=== PATIENT | male | born 1970 | race African-American/Black ===

== ENCOUNTER 2018-08-14 14:41 | Emergency (ER) | payer OTHER ==
[2018-08-14] MEDS ORDERED: Morphine 4 MG/ML VIAL ONE (15:20)
[2018-08-14 15:35] LABS: #Basophils 0.1 thou/uL (0.0-0.2); #Lymphocytes 2.2 thou/uL (1.20-3.40); #Monocytes 0.6 thou/uL (0.11-0.59); #Neutrophils 4.2 thou/uL (1.40-6.50); %Basophils 1.7 % (0.0-1.0); %Eosinophils 0.3 % (0.0-10.0); %Lymphocytes 30.7 % (21.0-51.0); %Monocytes 8.4 % (0.0-10.0); %Neutrophils 58.9 % (42.0-75.0); Hemoglobin 13.8 g/dL (14.0-18.0); Mean Corpuscular Hemoglobin 28.3 pg (27.0-31.0); Mean Corpuscular Volume 88.5 fL (78.0-98.0); Mean Platelet Volume 8.2 fL (7.4-10.4); Platelet Count 225 thou/uL (130-400); RBC Distribution Width 13.8 % (11.5-14.5); Red Blood Cell (RBC) Count 4.87 mill/uL (4.70-6.10); White Blood Cell (WBC) Count 7.1 thou/uL (4.8-10.8)
[2018-08-14 15:52] LABS: ALT (SGPT) 30 U/L (8-55); AST (SGOT) 38 U/L (5-34); Albumin 4.4 g/dL (3.5-5.0); Alkaline Phosphatase 74 U/L (40-150); Anion Gap 17 mmol/L (10-20); BUN (Urea Nitrogen) 13 mg/dL (8.9-20.6); Bilirubin, Total 0.6 mg/dL (0.2-1.2); Calc. Creatinine Clearance 0 mL/min (70-130); Calcium 9.6 mg/dL (7.8-10.44); Carbon Dioxide 21 mmol/L (22-29); Chloride 101 mmol/L (98-107); Estimated GFR-MDRD 77; Globulin 3.8 g/dL (2.4-3.5); Glucose 294 mg/dL (70-105); Potassium 4.2 mmol/L (3.5-5.1); Protein, Total 8.2 g/dL (6.0-8.3); Sodium 135 mmol/L (136-145)
--- NOTE | 2018-08-14 15:52 | RAD ---
CHEST TWO VIEWS: History: Right sided chest pain. Comparison: None. FINDINGS: Normal cardiac silhouette. The pulmonary vessels and hilum are normal. Costophrenic angles are clear. No masses or consolidation. No pneumothorax or osseous abnormality. IMPRESSION: No acute cardiopulmonary process. POS: H
== END 2018-08-14 16:35 | disposition home or self-care (01) ==
LOC: SCSER 14:41
DX: R07.89 Other chest pain (principal); I10 Essential (primary) hypertension; E11.65 Type 2 diabetes mellitus with hyperglycemia; E78.5 Hyperlipidemia, unspecified; F17.210 Nicotine dependence, cigarettes, uncomplicated; F41.9 Anxiety disorder, unspecified; F31.9 Bipolar disorder, unspecified
CPT/HCPCS: 71046; 80053; 85025; 96361; 96374; J2270

== ENCOUNTER 2019-06-09 09:03 | Emergency (ER) | payer OTHER | END 2019-06-09 10:19 | disposition left against medical advice (07) | LOC: SCSER 09:03 | DX: Z53.21 Procedure and treatment not carried out due to patient leaving prior to being seen by health care provider (principal) ==

== ENCOUNTER 2020-03-16 10:59 | Emergency (ER) | payer OTHER ==
[2020-03-16] MEDS ORDERED: Morphine 10 MG/ML VIAL ONE (12:30)
[2020-03-16] MEDS ORDERED: Diazepam 5 MG TAB ONE (12:30)
== END 2020-03-16 12:50 | disposition home or self-care (01) ==
LOC: ERS 10:59
DX: G89.29 Other chronic pain (principal); M54.5 Low back pain; I10 Essential (primary) hypertension; E11.40 Type 2 diabetes mellitus with diabetic neuropathy, unspecified; E78.5 Hyperlipidemia, unspecified; E78.00 Pure hypercholesterolemia, unspecified; F31.9 Bipolar disorder, unspecified; F41.9 Anxiety disorder, unspecified; F17.210 Nicotine dependence, cigarettes, uncomplicated; Z79.84 Long term (current) use of oral hypoglycemic drugs; Z79.899 Other long term (current) drug therapy
CPT/HCPCS: 96372; 99283; J2270

== ENCOUNTER 2020-03-18 09:16 | Outpatient (CLI) | payer OTHER ==
--- NOTE | 2020-03-18 11:00 | MRI ---
LUMBAR SPINE MRI WITH AND WITHOUT CONTRAST: COMPARISON: 10/11/2014. CORRELATION: Lumbar spine MRI without contrast 01/09/2018. FINDINGS: Bilateral transpedicular screws at L2, L3, L4, L5 and S1. There is associated metallic susceptibility artifact. Overall appropriate T1 marrow signal intensity of the lumbar vertebrae. No evidence of fracture. Straightening of lumbar lordosis is presumed to be due to fusion. No significant STIR hyper intensity to suggest vertebral body edema or ligamentous injury. Redemonstration of a T2 hyperintense focus at the L5-S1 level, superficial to the laminectomy defect. T2 hyperintensity measu res 1.7 x 0.9 x 1.9 cm. Previously, this T2 hyperintense focus measured 2.4 x 1.3 x 2.3 cm. Minimal associated peripheral enhancement. Appropriate signal intensity of the visualized solid organs and paraspinal muscles. Conus medullaris terminates near the T12-L1 level. T12-L1: Adequate disc hydration. No posterior disc abnormality. No significant central canal stenosis or significant neural foraminal narrowing. L1-L2: Abnormal T2 and STIR hyperintensity in the disc. Definite enhancement is not appreciated on th e postcontrast images. Abnormal signal intensity appears to be due to the position of the left-sided screw which enters the disc space. There may be at least moderate central canal stenosis s econdary to disc material and posterior element hypertrophy. Mild bilateral neural foraminal narrowing. L2-L3: Disc desiccation without significant loss of disc space height. No posterior disc abnormality. No significant central canal stenosis or significant neural foraminal narrowing. L3-L4: Mild loss of disc space height. Posterior laminectomy defect. No significant posterior disc ab normality. No significant central canal stenosis. Mild bilateral foraminal narrowing predominantly due to disc material. L4-L5: Desiccation with severe loss of disc space height. Broad-based disc bulge without any signific ant mass effect upon the thecal sac. There is no significant central canal stenosis. Bilaterally, neural foramina are patent. There is minimal enhancement along the posterior left margin of the disc at the level subarticular zone. This area of enhancement does abut the traversing left L4 nerve root without significant obscuration. L5-S1: Adequate disc hydration. No posterior disc abnormality. No significant central canal stenosis. Moderate bilateral facet hypertrophy. There is abnormal signal intensity involving both neural foramina which appears to be due to disc material and posterior element hypertrophy. Moderate to sheng re bilateral neural foraminal narrowing, unchanged. IMPRESSION: 1. Interval progression of fusion since both previous examinations. There is posterior fusion from L2 through S1. Multilevel laminectomy defects. 2. Moderate central canal stenosis at L1-L2. 3. Abnormal enhancement along the posterior margin of the L4-L5 disc at the level of the left subarti cular zone. Enhancement abuts the traversing left L5 nerve root. 4. Moderate to severe bilateral neural foraminal narrowing at L5-S1. Transcribed Date/Time: 03/18/2020 11:48 AM
--- NOTE | 2020-03-18 11:01 | RAD ---
EXAM: 4 views of the lumbosacral spine HISTORY: Low back pain COMPARISON: 10/14/2014 FINDINGS: 4 views of the lumbosacral spine shows the patient is status post fusion of L2-S1 with bila teral pedicle screws. No perihardware lucency is seen surrounding the L2 and L3 screws. Laminectomies have also been performed in the lower lumbosacral spine. The vertebral bodies demonstra te normal alignment without significant subluxation. Alignment is unchanged with flexion and extension. The intervertebral discs are narrowed in the upper lumbar spine and at L4/5. IMPRESSION: Lucency seen surrounding the L2 and L3 screws.
== END 2020-03-18 09:17 | disposition home or self-care (01) ==
LOC: SCSMRI 09:16
PROVIDERS: ATTEND Anesthesiology Pain Medicine
DX: M96.1 Postlaminectomy syndrome, not elsewhere classified (principal); M48.061 Spinal stenosis, lumbar region without neurogenic claudication; M48.07 Spinal stenosis, lumbosacral region; R93.7 Abnormal findings on diagnostic imaging of other parts of musculoskeletal system; Z98.1 Arthrodesis status
CPT/HCPCS: 72110; 72158

== ENCOUNTER 2022-02-25 13:12 | Emergency (ER) | payer OTHER | END 2022-02-25 16:30 | disposition home or self-care (01) | LOC: ERS 13:12 | DX: S00.81XA Abrasion of other part of head, initial encounter (principal); E11.40 Type 2 diabetes mellitus with diabetic neuropathy, unspecified; Z79.899 Other long term (current) drug therapy; V89.2XXA Person injured in unspecified motor-vehicle accident, traffic, initial encounter | CPT/HCPCS: 70450; 72125; 93005 ==